=== PATIENT | female | born 1960 | race Caucasian/White ===

== ENCOUNTER → 2018-07-08 | Outpatient (CLI) | payer OTHER ==
[~2018-07-08] MED LIST: ALPRAZOLAM 0.0.25 M1 PO; CELEXA 20 MG TA20 MG PO; CRESTOR5 MG PO; IBUPROFEN 600600 M1 PO; ROBAXIN500 MG PO
== END ==
LOC: M.CT 07:47
DX: Z13.6 Encounter for screening for cardiovascular disorders (principal)